=== PATIENT | male | born 1950 | race African-American/Black ===

== ENCOUNTER 2017-05-07 23:42 | Emergency (ER) | payer MEDICARE ==
[~2017-05-07] VITALS: Ht 172.7 cm; Wt 80.0 kg
[~2017-05-07 23:42] MED LIST: CLONIDINE0.1 MG PO; LISINOPRIL10 MG PO; NO HOME MEDS; PERCOCET 5/325M1 TAB PO; TRAMADL/APAP PO
[2017-05-08 00:51] LABS: HEMATOCRIT 41.8 % (39.0-50.0); HEMOGLOBIN 13.5 g/dl (14.0-18.0); IMMATURE GRANULOCYTES 0.2 % (0.0-1.0); MEAN CELL VOLUME 81.2 fL CALC (80.0-100.0); MEAN CORPUSCULAR HGB 26.2 pG CALC (26.0-32.0); MEAN CORPUSCULAR HGB CONC 32.3 g/L CALC (32.0-36.0); NEUT# 4.18 thou/uL (1.82-7.42); RED BLOOD COUNT 5.15 mill/uL (4.70-6.10); RED CELL DISTRI WIDTH 13.6 % (11.5-15.5)
[2017-05-08 00:53] LABS: URINE BILIRUBIN - DIPSTICK NEGATIVE (NEGATIVE); URINE BLOOD DIPSTICK NEGATIVE (NEGATIVE); URINE COLOR YELLOW; URINE GLUCOSE - DIPSTICK NEGATIVE (NEGATIVE); URINE KETONE NEGATIVE (NEGATIVE); URINE LEUK ESTERASE NEGATIVE (NEGATIVE); URINE NITRITE - DIPSTICK NEGATIVE (Negative); URINE PH 7.5 (4.5-8.0); URINE PROTEIN - DIPSTICK NEGATIVE (NEG-TRACE); URINE SPECIFIC GRAVITY 1.015; URINE UROBILINOGEN - DIPSTICK 0.2 E.U./dL (0.2)
[2017-05-08 00:55] LABS: URINE CLARITY CLEAR
[2017-05-08 01:05] LABS: BARBITURATES NEGATIVE (NEGATIVE); COCAINE NEGATIVE (NEGATIVE); METHADONE NEGATIVE (NEGATIVE); OXCYCODONE NEGATIVE (NEGATIVE); TETRAHYDROCANNABIONOL NEGATIVE (NEGATIVE); TRICYLIC ANTIDEPRESSANTS NEGATIVE (NEGATIVE)
[2017-05-08 01:06] LABS: ALBUMIN 4.6 g/dL (3.2-5.0); ALKALINE PHOSPHATASE 86 u/l (38-126); ANION GAP 17 (6-22 (CALC)); BILIRUBIN, TOTAL 0.4 mg/dL (0.0-1.4); BUN 17 mg/dL (8-23); BUN/CREATININE RATIO 16 (12-20 (CALC)); CALCIUM 9.5 mg/dL (8.4-10.2); CARBON DIOXIDE 27 mmol/l (22-30); CHLORIDE 104 mmol/l (95-108); GFR > 60 ML/MIN (>=60 (CALC)); GFR FOR AFR.AMER. > 60 ML/MIN (>=60 (CALC)); GLUCOSE 157 mg/dL (82-115); POTASSIUM 3.5 mmol/l (3.5-5.1); SGOT/AST 32 u/l (19-48); SGPT/ALT 28 u/l (11-66); SODIUM 145 mmol/l (137-146); TOTAL PROTEIN 7.3 g/dL (6.3-8.2)
[2017-05-08 01:18] LABS: MYOGLOBIN 65 ng/mL (0 - 121)
[2017-05-08 01:20] VITALS: BP 189/90
[2017-05-08 01:34] LABS: ACT PARTIAL THROMBO TIME 21.7 SECONDS (20.0-32.5); PROTHROMBIN TIME 10.9 SECONDS (9.0-12.5)
== END 2017-05-08 01:24 | disposition short-term general hospital (02) ==
LOC: ED 23:42
PROVIDERS: Emergency Medicine
DX: I61.8 Other nontraumatic intracerebral hemorrhage (principal); I16.1 Hypertensive emergency; I10 Essential (primary) hypertension; Z91.14 Patient's other noncompliance with medication regimen

== ENCOUNTER 2017-09-23 12:56 | Emergency (ER) | payer MEDICARE ==
[~2017-09-23] VITALS: Ht 172.7 cm; Wt 70.0 kg
[2017-09-23] MEDS ORDERED: AMLODIPINE5 MG PO (14:02)
[2017-09-23] MEDS ORDERED: LISINOP/HCTZ1 TA1 PO (14:02)
[2017-09-23] MEDS ORDERED: ATENOLOL50 MG PO (14:03)
[2017-09-23] MEDS ORDERED: DIOVAN160 MG PO (14:03)
[2017-09-23] MEDS ORDERED: ATORVASTATIN CA40 MG PO (14:03)
[2017-09-23] MEDS ORDERED: BENADRYL25 M1 PO (14:18)
[2017-09-23] MEDS ORDERED: PREDNISONE50 MG PO (14:18)
[2017-09-23 15:04] VITALS: BP 126/65
== END 2017-09-23 15:03 | disposition home or self-care (01) ==
LOC: ED 12:56
DX: T78.3XXA Angioneurotic edema, initial encounter (principal); I10 Essential (primary) hypertension; Z86.73 Personal history of transient ischemic attack (TIA), and cerebral infarction without residual deficits; Z91.14 Patient's other noncompliance with medication regimen

== ENCOUNTER 2018-12-25 16:12 | Emergency (ER) | payer MEDICARE ==
[~2018-12-25] VITALS: Ht 172.7 cm; Wt 70.0 kg
[~2018-12-25 16:12] MED LIST changes: +AMLODIPINE5 MG PO; +ATENOLOL50 MG PO; +ATORVASTATIN CA40 MG PO; +BENADRYL25 M1 PO; +DIOVAN160 MG PO; +LISINOP/HCTZ1 TA1 PO; +PREDNISONE50 MG PO
[2018-12-25 17:28] LABS: URINE BILIRUBIN - DIPSTICK NEGATIVE (NEGATIVE); URINE BLOOD DIPSTICK LARGE (NEGATIVE); URINE COLOR YELLOW; URINE GLUCOSE - DIPSTICK NEGATIVE (NEGATIVE); URINE KETONE NEGATIVE (NEGATIVE); URINE LEUK ESTERASE SMALL (Negative); URINE NITRITE - DIPSTICK NEGATIVE (Negative); URINE PH 5.5 (4.5-8.0); URINE PROTEIN - DIPSTICK NEGATIVE (NEG-TRACE); URINE SPECIFIC GRAVITY 1.025
[2018-12-25 17:36] LABS: URINE CLARITY TURBID
[2018-12-25 17:53] LABS: URINE RBC TNTC RBC/hpf (0-5)
[2018-12-25 17:54] LABS: URINE BACTERIA MODERATE hpf; URINE SQUAMOUS EPITHELIAL CELL FEW EPI/hpf (0-FEW)
[2018-12-25 18:00] VITALS: BP 162/78
[2018-12-25] MEDS ORDERED: KEFLEX500 M1 PO (18:13)
[2018-12-25] MEDS ORDERED: PYRIDIUM200 MG PO (18:13)
== END 2018-12-25 18:35 | disposition home or self-care (01) ==
LOC: ED 16:12
DX: N39.0 Urinary tract infection, site not specified (principal); I10 Essential (primary) hypertension; Z86.73 Personal history of transient ischemic attack (TIA), and cerebral infarction without residual deficits; Z91.14 Patient's other noncompliance with medication regimen

== ENCOUNTER 2019-05-05 | Emergency (ER) | payer OTHER, MEDICARE ==
[~2019-05-05] MED LIST changes: +KEFLEX500 M1 PO; +PYRIDIUM200 MG PO
[2019-05-05] MEDS ORDERED: CEPHALEXIN500 M1 PO (14:32)
== END 2019-05-05 16:25 | disposition home or self-care (01) | DRG 605 ==
PROC: 0HQGXZZ Repair Left Hand Skin, External Approach (ICD-10-PCS; principal; 2019-05-05)
DX: S61.217A Laceration without foreign body of left little finger without damage to nail, initial encounter (principal); I10 Essential (primary) hypertension; W26.8XXA Contact with other sharp object(s), not elsewhere classified, initial encounter; Z86.73 Personal history of transient ischemic attack (TIA), and cerebral infarction without residual deficits; Z91.14 Patient's other noncompliance with medication regimen

== ENCOUNTER 2021-02-04 06:09 | Emergency (ER) | payer MEDICARE ==
[~2021-02-04] VITALS: Ht 172.7 cm; Wt 68.0 kg
[~2021-02-04 06:09] MED LIST changes: +CEPHALEXIN500 M1 PO
[2021-02-04 07:17] LABS: HEMATOCRIT 46.4 % (39.0-50.0); HEMOGLOBIN 14.7 g/dl (14.0-18.0); IMMATURE GRANULOCYTES 0.1 % (0.0-5.0); MEAN CELL VOLUME 83.9 fL CALC (80.0-100.0); MEAN CORPUSCULAR HGB 26.6 pG CALC (26.0-32.0); MEAN CORPUSCULAR HGB CONC 31.7 g/dL CAL (32.0-36.0); NEUT# 5.56 thou/uL (1.82-7.42); RED BLOOD COUNT 5.53 mill/uL (4.70-6.10); RED CELL DISTRI WIDTH 13.5 % (11.5-15.5)
[2021-02-04 07:32] LABS: ALBUMIN 4.5 g/dL (3.2-5.0); ALKALINE PHOSPHATASE 93 u/l (38-126); ANION GAP 12 (6-22 (CALC)); BILIRUBIN, TOTAL 0.6 mg/dL (0.0-1.4); BUN 17 mg/dL (8-23); BUN/CREATININE RATIO 18 (12-20 (CALC)); CARBON DIOXIDE 30 mmol/l (22-30); CHLORIDE 102 mmol/l (95-108); CREATININE 0.9 mg/dL (0.7-1.3); GFR > 60 ML/MIN (>=60 (CALC)); GFR FOR AFR.AMER. > 60 ML/MIN (>=60 (CALC)); POTASSIUM 4.1 mmol/l (3.5-5.1); SGOT/AST 27 u/l (19-48); SODIUM 140 mmol/l (137-146)
[2021-02-04 08:16] LABS: URINE BILIRUBIN - DIPSTICK NEGATIVE (NEGATIVE); URINE BLOOD DIPSTICK NEGATIVE (NEGATIVE); URINE COLOR YELLOW; URINE GLUCOSE - DIPSTICK NEGATIVE (NEGATIVE); URINE KETONE NEGATIVE (NEGATIVE); URINE LEUK ESTERASE NEGATIVE (NEGATIVE); URINE PROTEIN - DIPSTICK NEGATIVE (NEG-TRACE); URINE SPECIFIC GRAVITY 1.015; URINE UROBILINOGEN - DIPSTICK 0.2 E.U./dL (0.2)
[2021-02-04 08:22] LABS: URINE NITRITE - DIPSTICK NEGATIVE (Negative)
[2021-02-04] MEDS ORDERED: CYCLOBENZAPRINE10 MG PO (08:28)
[2021-02-04] MEDS ORDERED: ULTRAM50 M1 PO (08:28)
[2021-02-04 09:50] VITALS: BP 155/80
== END 2021-02-04 10:06 | disposition home or self-care (01) ==
LOC: ED 06:09
PROVIDERS: Family Medicine
DX: M47.817 Spondylosis without myelopathy or radiculopathy, lumbosacral region (principal); I16.1 Hypertensive emergency; I10 Essential (primary) hypertension; Z86.73 Personal history of transient ischemic attack (TIA), and cerebral infarction without residual deficits; Z91.14 Patient's other noncompliance with medication regimen

== ENCOUNTER 2021-02-07 17:28 | Emergency (ER) | payer MEDICARE ==
[~2021-02-07] VITALS: Ht 172.7 cm; Wt 55.0 kg
[~2021-02-07 17:28] MED LIST changes: +CYCLOBENZAPRINE10 MG PO; +ULTRAM50 M1 PO
[2021-02-07] MEDS ORDERED: AVALIDE 300-12.1 TAB PO (18:11)
[2021-02-07] MEDS ORDERED: CLONIDINE0.1 MG PO (18:12)
[2021-02-07] MEDS ORDERED: DECADRON4 MG PO (18:17)
[2021-02-07] MEDS ORDERED: TORADOL PO (18:17)
[2021-02-07] MEDS ORDERED: HYDROCO/APAP1 TA9 PO (18:17)
[2021-02-07 18:34] VITALS: BP 159/96
== END 2021-02-07 18:34 | disposition home or self-care (01) ==
LOC: ED 17:28
DX: M54.42 Lumbago with sciatica, left side (principal); M54.41 Lumbago with sciatica, right side; I10 Essential (primary) hypertension; Z86.73 Personal history of transient ischemic attack (TIA), and cerebral infarction without residual deficits; Z91.14 Patient's other noncompliance with medication regimen

== ENCOUNTER 2024-01-15 10:17 | Observation (INO) | payer MEDICARE ==
[~2024-01-15] VITALS: Ht 167.6 cm; Wt 61.8 kg
[2024-01-15] VITALS (22 sets, daily range): BP systolic 121–200; BP diastolic 81–125
[~2024-01-15 10:17] MED LIST changes: +AVALIDE 300-12.1 TAB PO; +DECADRON4 MG PO; +HYDROCO/APAP1 TA9 PO; +TAMSULOSIN0.4 MG PO; +TORADOL PO
--- NOTE | 2024-01-15 10:20 | NUR ---
pt walked back to er room 8, pts spouse at side, no distress noted
[2024-01-15] MEDS ORDERED: SODIUM CHLORIDE 0.9% 1,000 ML IV ONE (10:35)
[2024-01-15] MEDS ORDERED: ONDANSETRON HCl 4 MG/2 ML SDV IV ONE (10:35)
[2024-01-15 10:53] LABS: BASO% 0.1 % (0-3); HEMATOCRIT 49.2 % (39.0-50.0); HEMOGLOBIN 15.8 g/dl (14.0-18.0); IMMATURE GRANULOCYTES 0.2 % (0.0-5.0); LYMPH% 9.1 % (15-41); MEAN CELL VOLUME 82.3 fL CALC (80.0-100.0); MEAN CORPUSCULAR HGB 26.4 pG CALC (26.0-32.0); MEAN CORPUSCULAR HGB CONC 32.1 g/dL CAL (32.0-36.0); MONO% 8.6 % (2-13); NEUT# 7.31 thou/uL (1.82-7.42); RED BLOOD COUNT 5.98 mill/uL (4.70-6.10); RED CELL DISTRI WIDTH 13.4 % (11.5-15.5)
[2024-01-15 10:55] LABS: URINE BILIRUBIN - DIPSTICK Negative (NEGATIVE); URINE BLOOD DIPSTICK Small (NEGATIVE); URINE GLUCOSE - DIPSTICK Negative (NEGATIVE); URINE KETONE Trace mg/dL (NEGATIVE); URINE LEUK ESTERASE Negative (NEGATIVE); URINE NITRITE - DIPSTICK Negative (Negative); URINE PH 6.5 (4.5-8.0); URINE PROTEIN - DIPSTICK 100 mg/dL (NEG-TRACE); URINE SPECIFIC GRAVITY >=1.030; URINE UROBILINOGEN - DIPSTICK 0.2 E.U./dL (0.2)
[2024-01-15 10:57] LABS: URINE COLOR Yellow
[2024-01-15] MEDS ORDERED: KETOROLAC TROMETHAMINE 30 MG/ML SDV IV ONE (11:00)
[2024-01-15 11:04] LABS: URINE MUCUS FEW hpf (NONE-FEW); URINE RBC 0-2 RBC/hpf (0-5)
[2024-01-15 11:18] LABS: TOTAL PROTEIN 8.6 g/dL (6.3-8.2)
[2024-01-15] MEDS ORDERED: MAGNESIUM HYDROXIDE 30 ML UDC PO PRN (13:20)
[2024-01-15] MEDS ORDERED: ACETAMINOPHEN 325 MG/TAB PO PRN (13:20)
[2024-01-15] MEDS ORDERED: ONDANSETRON HCl 4 MG/2 ML SDV IV PRN (13:25)
[2024-01-15] MEDS ORDERED: hydrALAZINE HCL 20 MG/ML VIAL(1 ML) IV PRN (13:25)
--- NOTE | 2024-01-15 14:20 | NUR ---
Lying ing bed resting quietly. Abdomen soft and nontender. NG tube to right nare to low intermittent suction. Patient tolerating well. Will continue to monitor.
--- NOTE | 2024-01-15 14:59 | NUR ---
REPORT RECEIVED FROM AARON WING
[2024-01-15] MEDS ORDERED: MORPHINE SULFATE 4 MG/ML VIAL IV PRN (15:00)
[2024-01-15] MEDS ORDERED: KETOROLAC TROMETHAMINE 15 MG/ML SDV IV PRN (15:00)
[2024-01-15] MEDS ORDERED: LABETALOL HCL 100 MG/20 ML VIAL IV ONE (15:05)
[2024-01-15] MEDS ORDERED: hydrALAZINE HCL 20 MG/ML VIAL(1 ML) IV ONE (15:05)
--- NOTE | 2024-01-15 15:08 | NUR ---
Medicated for BP per order. NG tube to right nare in place. No acute distress noted at this time. at bedside. Report given to Guerita.
--- NOTE | 2024-01-15 15:30 | NUR ---
PT ARRIVED TO MED/SURG ROOM 261 IN STABLE CONDITION VIA WC ACCOMPANIED BY AARON WING AND SPOUSE. PT AMBULATED TO STANDING SCALE AND BEDSIDE;WT AND VS OBTAINED;PT A&O X3, ORIENTED TO ROOM AND CALL LIGHT SYSTEM;PT REPORTS N/V SINCE Wednesday01/14/24;PT DENIES ANY CURRENT PAIN OR NAUSEA, PAIN SCALE AND REPORTING EDUCATED;ASSESSMENT COMPLETED;RESPIRATIONS EVEN AND UNLABORED ON RA,CLEAR LUNG SOUNDS;NGT NOTED TO RT NARE RUNNING TO LIS, SCANT CLEAR DRAINAGE NOTED;ABDOMEN DISTENDED/SOFT ON PALPATION WITH HYPOACTIVE BOWEL SOUNDS, PT UNSURE OF WHEN LAST BM WAS;MASS LIKE AREA NOTED TO LEFT FOREARM- PT REPORTS THAT "HE DOESNT NOT KNOW WHAT IT IS YET BUT HE IS FOLLOWING WITH A SPECIALIST";STRONG PEDAL PULSES;SKIN INTACT;TELE MONITORING [address];#20G TO RAC FLUSHED AND PATENT, LR TO BE STARTED AT 125ML/HR PER ORDER;PT EDUACTED ON NPO DIET STATUS AND VERBALIZES UNDERSTANDING;ALLERGY BAND APPLIED TO RIGHT WRIST;PT ENCOURAGED TO CALL FOR ASSISTANCE IF NEEDED;FALL PRECAUTIONS IN PLACE WITH BED IN THE LOWEST POSITION AND CALL LIGHT IN REACH;FREQUENT ROUNDS MADE.
[2024-01-15] MEDS ORDERED: LACTATED RINGER'S 1,000 ML IV PRN (15:35)
--- NOTE | 2024-01-15 16:00 | NUR ---
XRAY AT BEDSIDE
--- NOTE | 2024-01-15 17:20 | NUR ---
PT APPEARS TO BE SLEEPING IN SEMI FOWLERS POSITION;RESPIRATIONS EVEN AND UNLABORED ON RA;NGT CONTINUES TO LIS;TELE MONITORING IN PLACE;IV SITE PATENT INFUSING LR @ 125ML/HR;FALL PRECAUTIONS IN PLACE WITH CALL LIGHT IN REACH;FREQUENT ROUNDS MADE.
--- NOTE | 2024-01-15 18:20 | NUR ---
BP ELEVATED. PT TO BE MEDICATED WITH PRN APRESOLINE SLOW IVP PRN PER ORDER.
--- NOTE | 2024-01-15 19:20 | NUR ---
PATIENT OBSERVED IN BED WITH HOB OF BED ELEVATED. ALERT AND ORIENTED. ABLE TO MAKE NEEDS KNOWN. ASSESSMENT COMPLETE. DENIES ANY PAIN TO ABDOMEN OR ANYWHERE ELSE. NO SHORTNESS OF BREATH. NG TUBE OBSERVED TO RT [place]RA[place] ON LIS. INSTRUCTED PATIENT IMPORTANCE OF KEEPING HEAD OF BED ELEVATED. HE TENDS TO SLOUCH HIMSELF DOWN. AWAITING REPEAT XRAY ON NG TUBE PLACEMENT. BED IN LOW POSITION. CALL BRANTLEY AND BELONGINGS IN REACH.
--- NOTE | 2024-01-15 20:22 | NUR ---
NOTIFIED MD OF PATIENTS HIGH BP. PROVIDER TO PUT IN NEW ORDER.
[2024-01-15] MEDS ORDERED: ENALAPRILAT 1.25 MG/ML 1ML IV ONE (20:35)
[2024-01-15] MEDS ORDERED: ENOXAPARIN SODIUM 40 MG/0.4 ML SYR SC SCH (21:00)
[2024-01-16] VITALS (13 sets, daily range): BP systolic 137–196; BP diastolic 76–109
--- NOTE | 2024-01-16 00:21 | NUR ---
PATIENT REMAINS ALERT AND ORIENTED. DENIES NEEDING ANYTHING AT THIS TIME. NG TUBE REMAINS IN PLACE ON LIS. HOB REMAINS ELEVATED. PATIENTS BP INCREASED, PRN APRESOLINE GIVEN PER ORDERS. WILL RECHECK WHEN TIME INDICATED. BED REMAINS IN LOW POSITION. CALL BRANTLEY IN REACH.
--- NOTE | 2024-01-16 03:35 | NUR ---
PATIENT VOICED PAIN REMAINS. PRN PAIN MEDICATION GIVEN ORDERED. PATIENT TOLERATED WELL. NG TUBE REMAINS ON LIS. CLEAR GREENISH DRAINAGE TO TUBING. WILL RECHECK BP AFTER RECEIVING PAIN MEDICATION. HOB REMAINS ELEVATED.
[2024-01-16 05:01] LABS: BASO% 0.4 % (0-3); EOS% 0.2 % (0-8); HEMATOCRIT 46.3 % (39.0-50.0); HEMOGLOBIN 15.1 g/dl (14.0-18.0); IMMATURE GRANULOCYTES 0.2 % (0.0-5.0); LYMPH% 16.1 % (15-41); MEAN CELL VOLUME 82.2 fL CALC (80.0-100.0); MEAN CORPUSCULAR HGB 26.8 pG CALC (26.0-32.0); MEAN CORPUSCULAR HGB CONC 32.6 g/dL CAL (32.0-36.0); MONO% 14.1 % (2-13); NEUT# 3.76 thou/uL (1.82-7.42); RED BLOOD COUNT 5.63 mill/uL (4.70-6.10); RED CELL DISTRI WIDTH 13.9 % (11.5-15.5)
[2024-01-16 05:22] LABS: CHOLESTEROL HDL RATIO 1.7 (<4.4 (CALC)); CREATININE 0.9 mg/dL (0.7-1.3); MAGNESIUM 2.1 mg/dL (1.6-2.3); POTASSIUM 3.9 mmol/l (3.5-5.1)
[2024-01-16 05:23] LABS: TOTAL PROTEIN 6.5 g/dL (6.3-8.2)
--- NOTE | 2024-01-16 07:14 | NUR ---
SPOKE WITH PROVIDER AND UPDATED ON PATIENTS STATUS.
--- NOTE | 2024-01-16 07:17 | NUR ---
SHIFT CHANGE REPORT, PT AWAKE AND ORIENED, RESTLESS AND TOSSING IN BED BUT DENIES PAIN, NG TUBE IN PLACE TO RIGHT NARE WITH LIGHT GREEN DRAINAGE. IVF INFUSING, TELE MONITOR IN PLACE, CALL BRANTLEY IN REACH AND BED LOCKED IN LOWEST POSITION.
[2024-01-16] MEDS ORDERED: cloNIDine TRANSDERMAL 0.2MG/24 HR 7-DAY PATCH TD SCH (09:00)
--- NOTE | 2024-01-16 09:54 | NUR ---
DR BARNARD ROUNDED, REMOVED NG TUBE AND WROTE ORDERS. PT IS VERY CONTENTED TO RELIEVE HIS DISCOMFORT WHICH HE REPORTED EARLIER.
[2024-01-16] MEDS ORDERED: amLODIPine BESYLATE 5 MG/TAB PO SCH (10:00)
[2024-01-16] MEDS ORDERED: AMLODIPINE BESYL5 MG PO (12:09)
--- NOTE | 2024-01-16 12:30 | NUR ---
PT TOLERATED FULL LIQUID MEAL WITHOUT DISCOMFORT.
--- NOTE | 2024-01-16 16:52 | NUR ---
RESTING IN BED, MEDICATED EARLIER FOR ELEVATED BP OF 169/109, HYDRALAZINE GIVEN, BP NOW 137/77, HR = 83
--- NOTE | 2024-01-16 18:25 | NUR ---
Discharge instructions given. Patient verbalizes understanding of same. Discharged in good condition via Ambulatory to Home with family. All belongings sent with pt.
[2024-01-17] MEDS ORDERED: INFLUENZA VIRUS VACCINE FLUZONE HD 2024/25 0.5 ML INJ IM SCH (09:00)
[2024-01-17] MEDS ORDERED: PNEUMOCOCCAL VACCINE IM SCH (09:00)
== END 2024-01-16 17:59 | disposition home or self-care (01) ==
LOC: ED 10:17 → ED-I 12:26 → ED 12:45 → MS2 12:46
PROVIDERS: Family Medicine; ADMIT Student in an Organized Health Care Education/Training Program; ATTEND Student in an Organized Health Care Education/Training Program
DX: K56.600 Partial intestinal obstruction, unspecified as to cause (principal); I10 Essential (primary) hypertension; R22.32 Localized swelling, mass and lump, left upper limb; K80.20 Calculus of gallbladder without cholecystitis without obstruction; T46.5X6A Underdosing of other antihypertensive drugs, initial encounter; Z91.128 Patient's intentional underdosing of medication regimen for other reason; Z86.73 Personal history of transient ischemic attack (TIA), and cerebral infarction without residual deficits
CPT/HCPCS: 90662; G0378; J1650; Q9967

== ENCOUNTER 2024-03-20 12:26 | Emergency (ER) | payer OTHER, MEDICARE ==
[2024-03-20] VITALS (9 sets, daily range): BP systolic 112–140; BP diastolic 67–79
[~2024-03-20] VITALS: Ht 167.6 cm; Wt 65.8 kg
[~2024-03-20 12:26] MED LIST changes: +AMLODIPINE BESYL5 MG PO
[2024-03-20] MEDS ORDERED: POVIDONE IODINE 0.5 OZ/BTL TOP ONE (12:40)
[2024-03-20] MEDS ORDERED: LIDOCAINE W/ EPINEPHRINE 10 MG/ML INJ STI ONE (12:40)
[2024-03-20] MEDS ORDERED: NEOMYCIN-BACITRACIN-POLYMYXIN 0.5 GM/PAK PAK TOP ONE (12:40)
[2024-03-20] MEDS ORDERED: SODIUM CHLORIDE 500 ML BTL IR ONE (12:40)
[2024-03-20] MEDS ORDERED: KETOROLAC TROMETHAMINE 30 MG/ML SDV IM ONE (14:05)
[2024-03-20] MEDS ORDERED: KEFLEX500 MG PO (14:09)
[2024-03-20] MEDS ORDERED: KETOROLAC TROMETHAMINE 15 MG/ML SDV IV ONE (14:20)
== END 2024-03-20 14:43 | disposition home or self-care (01) | DRG 999 ==
LOC: ED 12:26
PROC: 0HQ1XZZ Repair Face Skin, External Approach (ICD-10-PCS; principal; 2024-03-20)
DX: S01.81XA Laceration without foreign body of other part of head, initial encounter (principal); S06.9X9A Unspecified intracranial injury with loss of consciousness of unspecified duration, initial encounter; S00.03XA Contusion of scalp, initial encounter; S00.83XA Contusion of other part of head, initial encounter; I10 Essential (primary) hypertension; G45.9 Transient cerebral ischemic attack, unspecified; W13.3XXA Fall through floor, initial encounter; T46.5X6A Underdosing of other antihypertensive drugs, initial encounter; Z91.128 Patient's intentional underdosing of medication regimen for other reason